=== PATIENT | male | born 1940 | race African-American/Black ===

== ENCOUNTER 2021-03-16 17:58 | Inpatient (IN) | payer OTHER ==
[2021-03-17 00:59] VITALS: BP 157/98
--- NOTE | 2021-03-17 01:20 | NUR ---
Sean was admitted to [facility] at 2215 via w/c from the ED after testing negative for COVID. He was alert and oriented to self only and his thought process was disorganized. He presented as calm, cooperative, appropriate, and pleasant throughout the admission process. He was provided a pt admission packet, a walker, and bedside commode as pt is a high fall risk. He has 9 deepak to the left side of his head that had a dry, clean dressing on it upon admission to the unit; he otherwise does not have any skin issues. His vitals upon admission were BP 157/98, HR 86, T 98.0, and R 18. He did not appear to be delusion or experiencing ZAVALA at this time. He denied SI/HI. He was provided a blair as an alternative call light and used appropriately to use the bathroom in the middle of the night; pt continent at this time and had a BM. 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 Consent received per pt's /DPOA, Yudy Brown, and some collateral information received but she voiced being tired, therefore conversation was not very long. She stated that she was not aware of a DM type 2 diagnosis but per [facility] hospital records pt has a DM2 dx and had humalog ordered BID with meals. This was communicated to FLORES Barton and orders to [facility] accuchecks and to monitor for 24 hours and re-evaluate. Pt's medication list from [facility] was 2 pages long and the only medication pt was D/C'd on was losartan potassium 25mg daily. This was confirmed with pt's and she stated "he was also taking a water pill, hydro something". This RN asked if it was hydrochlorathiazide and she stated "yes" but she was unsure of the dose, and there are no medications in the medication reconciliation [facility]. This was communicated to FLORES Hein who wished for this RN to call the hospitalist regarding this. FLORES Barton notified and she wished to have day team address this, therefore only protocol orders were placed. Per report from the ED pt ambulated using a walker, but pt's stated that pt was not ambulating with any assistance CLIENT RELATION SPECIALIST. Pt is being admitted due to an acute change in his cognition and bx after a fall where he hit his head end of January. Per records pt was seen for a syncope episode and sent home. Pt went to [facility] where he was noted to have a "very large subdermal hematoma" and underwent an emergent evacuation/craniostomy (per records) on 03/12/21. The records stated that they believed his bx's and confusion were r/t metabolic enchepalopathy due to the subdermal hematoma. Per pt's his change in bx occurred after the result of his fall and she does not wish for him to return home right away. She would like for him to go "to the place across the street from [place] so he's close to me". Pt is currently resting quietly in bed, will continue to monitor.
[2021-03-17 09:44] VITALS: BP 144/91
[2021-03-17 10:41] LABS: HEMATOCRIT 34.2 % (42.0-52.0); HEMOGLOBIN 11.4 gm/dL (14.0-18.0); MCH 28.3 pg (26.0-34.0); MCHC 33.2 g/dL (28.0-37.0); MCV 85.2 fL (80.0-100.0); RBC 4.01 mil/uL (4.50-6.00); RDW 14.1 % (10.5-14.5); WBC 4.9 thou/uL (4.0-11.0)
--- NOTE | 2021-03-17 10:55 | NUR ---
Alert and orientated to name only. Resistant to cares and exit seeking this AM. Contacted [employer] Angel Luis haldol given PO per order. Resistant to taking haldol but did comply after alot of encouragement and phone call from . Calmed down significantly and even was cooperative with blood draw. Denies SI/HI. Drsg per R scalp clean and dry. Ambulates with walker with regular, steady gait. Breath sounds clear. Reg HR auscultated. Color pink with brisk capillary refill and palpable peripheral pulses. No edema noted. Supervised toileting. Continent of yellow urine and formed brown stool per toilet. Active bowel sounds over soft, rounded abdomen. Participated in group. Currently resting in bed without s/o distress, bed alarm set.
[2021-03-17 10:59] LABS: CALCIUM 8.8 mg/dL (8.5-10.1); CREATININE 1.7 mg/dL (0.7-1.3); MAGNESIUM 1.8 mg/dL (1.8-2.4); POTASSIUM 3.9 mmol/L (3.5-5.1)
--- NOTE | 2021-03-17 12:09 | EKG ---
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: : 1940 Requested By: Fausto Hein Order Number: [id number] MD: Vitaliy Meng Measurements Intervals Sparkman Rate: 93 P: -20 RI: 151 QRS: -9 QRSD: 85 T: 18 QT: 347 QTc: 432 Interpretive Statements Sinus rhythm LVH with secondary repolarization abnormality No previous ECG available for comparison Electronically Signed On 03-17-2021 12:08:51 PERIANESTHESIA MANAGER by Vitaliy Meng [email or web address] <ELECTRONICALLY SIGNED> By: Vitaliy Meng MD, [facility] 03/17/21 1208 0829 0829 Vitaliy Meng MD, FAC /EPI
--- NOTE | 2021-03-17 14:05 | NUR ---
SW met with patient. Patient appeared to be doing well and was in a jovial mood. Patient reports to not being "one to complain" in reference to the lunch provided.
[2021-03-17 15:11] LABS: CHOLESTEROL 126 mg/dL (<200); HDL CHOLESTEROL 51 mg/dL (>40); LDL CHOLESTEROL 59 mg/dL (<100); TC:HDL 2.5 Ratio (Not establshd); TRIGLYCERIDE 82 mg/dL (<150); VLDL 16 mg/dL (<40)
[2021-03-17 15:16] LABS: SERUM ASSESSMENT Clear
[2021-03-17 16:00] VITALS: BP 128/53
[2021-03-17 19:15] VITALS: BP 139/58
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
[2021-03-18 05:25] LABS: HEMATOCRIT 29.9 % (42.0-52.0); MCH 28.8 pg (26.0-34.0); MCHC 33.5 g/dL (28.0-37.0); MCV 85.8 fL (80.0-100.0); RBC 3.48 mil/uL (4.50-6.00); RDW 14.4 % (10.5-14.5); WBC 3.8 thou/uL (4.0-11.0)
[2021-03-18 05:33] LABS: CALCIUM 8.4 mg/dL (8.5-10.1); CREATININE 1.4 mg/dL (0.7-1.3); MAGNESIUM 1.6 mg/dL (1.8-2.4); POTASSIUM 3.7 mmol/L (3.5-5.1)
[2021-03-18 05:36] LABS: GLYCOHEMOGLOBIN (HGB A1C) 5.6 % (4.8-5.6)
[2021-03-18 10:16] VITALS: BP 146/62
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
--- NOTE | 2021-03-18 12:16 | NUR ---
12:16PM - Phone call to patient's , Yudy Brown - Voice message.
[2021-03-18 15:55] VITALS: BP 146/62
[2021-03-18 19:30] VITALS: BP 132/49
[2021-03-18 20:01] VITALS: BP 132/49
--- NOTE | 2021-03-18 20:02 | NUR ---
Assumed pt care this morning from overnight shift. Pt was in activity area sitting and watching television. Pt presented pleasant but anxious during this time. Pt was oriented 3x, and showed improvement from yesterday's report orientation, telling staff his name, date of , the place he was at, and situation. Client did look to the board for the year, and stated that it was 2020 after initially stating that it was 2022. Client denied any auditory and visual hallucinations at this time. Client also denied any depression. Client denied any suicidal or homicidal intent as well. Pain was rated 0/10 at this time. Romel in forehead were intact and in place. Lung sounds were clear. Bowel sounds present with last BM being 03/18/21 per patient report. Pt given prn haldol for anxiety. Haldol given through po. No adverse effects noted. called for update on patient. informed of current status. voices wanting pt nearby at facility, but not wanting pt to return to home care at this point. Pt and spoke and had pleasant conversation per pt report. No further concerns at this time.
--- NOTE | 2021-03-18 21:40 | NUR ---
03/18/211899 Assumed care from day shift, in day room watching tv and socializing with peers. Oriented x3, unsure of the date. Rates general and heal pain 09/14, takes meds whole with thin water. Surgical incision on left scalp well aproximated with 9 deepak intact, no redness or swelling noted. Retired to bed @ HS, bed in low position, bed alarm set.
[2021-03-19 09:01] VITALS: BP 132/55
--- NOTE | 2021-03-19 10:20 | NUR ---
New admit to [facility] for alzheimers demential with behavorial disturbance. Hx subdural hematoma, DM, CKD. Visit this am, pt ambulating around dining room. Voiced good appetite and no wt loss. Intake records show 100% of past 3 meals. On vitamin D supplementation for deficiency, 20.2. Otherwise low nutrition risk
--- NOTE | 2021-03-19 13:01 | NUR ---
Patient care resummed, patient located in his room resting comfortably. Patient medication and meal compliant, Denies SI/HI/AVH, pain, depression and anxiety at this time. Patient is on alvarado fall precautions, patient was found in his room during hourly rounds half dressed with water all over room. Patient was assissted with completing the rest of his shower. A&O*2(Self,Time) Lung sounds clear bilaterally;nonlabored and on RM; VSS; Abdomen soft, nondistended with bowel sounds present*4; Pt. has Right side weakness, ambulates with a walker although unsteady at times; disorientation at times; Calm, cooperative and pleasent with staff. Wound to the Head on Left side; with 9 deepak; would D/C/I no dressing applied at this time. Will continue to monitior patient for safety, behaviors and infection.
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
[2021-03-19 20:00] VITALS: BP 151/56
[2021-03-19 20:09] VITALS: BP 151/56
--- NOTE | 2021-03-20 03:10 | NUR ---
PATIENT HAS BEEN IN HIS ROOM IN BED SINCE BEGINNING OF THE SHIFT. HE IS A/0X3. HE DENIES PAIN, SI/HI. NO HALLUCINATIONS OR DELUSIONS NOTED. PATIENT HAS BEEN PLEASANT AND COOPERATIVE. HE TOOK HIS HS MEDS WHOLE WITHOUT ISSUE. HE IS UP TO BATHROOM WITH WALKER AND ASSIST X 1 TO SUPERVISE. PATIENT IS A FALL RISK SO BED IS IN LOW POSITION AND BED ALARM IS ON. PATIENT HAS BEEN UP MULTIPLE TIMES THRU THE NIGHT TO URINATE. VSS. PATIENT LIGHTLY SLEEPING. HE IS WANTING TO GO HOME SOON. HE STATES HE FEELS SO MUCH BETTER AND READY TO LEAVE. TOYA IN LEFT FOREHEAD ARE IN PLACE AND NO SOI. ROUTINE ROUNDS TO ASSESS SAFETY AND STATUS OF PATIENT. CONTINUING TO MONITOR.
[2021-03-20 09:40] VITALS: BP 143/64
[2021-03-20 09:49] VITALS: BP 143/64
--- NOTE | 2021-03-20 10:56 | NUR ---
RESUMMED CARE FROM OVERNIGHT SHIFT THIS AM, PATIENT IN DAY ROOM QUIET. PATIENT ALERT ORIENTED TIMES 3 PATIENT DENIES SI/HI/AH/VH AT PRESENT. PATIENT ATE BREAKFAST TOOK MEDICATION WITHOUT INCIDENCE. PATIENTS ABDOMEN SOFT BOWEL SOUNDS PRESENT. PATIENTS LUNGS CLEAR PATIENT PARTICIPATES IN GROUP ASKS ABOUT THIS AM. DR VIDALES SPOKE WITH PATIENT THIS AM PATIENT HAS NOT DISPLAYED ANY BEHAVIORS. WILL CONTINUE TO MONITOR PATIENT FOR SAFETY AND BEHAVIORS.
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
[2021-03-20 20:00] VITALS: BP 150/73
[2021-03-20 20:02] VITALS: BP 150/73
--- NOTE | 2021-03-21 02:31 | NUR ---
PATIENT HAS BEEN IN ROOM TONIGHT IN BED. HE HAS BEEN CALM AND COOPERATIVE BUT CONFUSED AT TIMES. HE THINKS HE IS IN A HOTEL IN [place]. HE QUICKLY REMEMBERED HE WAS IN [facility] WHEN TOLD SO. HE TOOK HIS HS MEDS WHOLE WITH WATER. HE DENIES PAIN, SI/HI/AVH. HE IS UP WITH ASSIST WITH WALKER. PATIENT ASSISTED TO BATHROOM NEEDED THRU THE NIGHT. BED IN LOW POSITION AND BED ALARM IS ON. ROUTINE ROUNDS TO ASSESS SAFETY AND STATUS OF PATIENT.
[2021-03-21 12:05] VITALS: BP 121/56
[2021-03-21 13:32] VITALS: BP 121/56
--- NOTE | 2021-03-21 14:34 | NUR ---
RESUMMED CARE FROM OVERNIGHT SHIFT THIS AM, PATIENT ALERT ORIENTED TIMES 3-4. PATIENT DENIES SI/HI/AH/VH AT PRESENT; PATIENT ATE BREAKFAST TOOK MEDICATION WITHOUT INCIDENCE. PATIENTS ABDOMEN SOFT BOWEL SOUNDS PRESENT PATIENTS LUNGS CLEAR. PATIENT PARTICIPATES IN GROUPS PLEASANT CALM COOPERATIVE. WILL CONTINUE TO MONITOR PATIENT FOR SAFETY AND BEHAVIORS.
[2021-03-21 19:32] VITALS: BP 116/54
--- NOTE | 2021-03-22 02:31 | NUR ---
PATIENT CARE WAS RESUMED AT 1900. HE WAS SITTING IN THE DININIG AREA SOCIALIZING WITH OTHER PATIENTS.HE IS ALERT AND ORIENTED AND ABLE TO VERBALIZE HIS NEEDS. HE AMBULATES CONTINIET OF BOWEL AND BLADDER. YELLOW TOP AND SOCKS ARE ON. HE DENIES PAINS/AVH/SI/HI AT THIS TIME. TOOK HIS MEDS WHOLE AND NO CONCERN NOTED AT HIS TIME. BED IS LOW, LOCKED AND ALERMED. [id number] CHECKS ONGOING. CONTINUE CARE
[2021-03-22 07:08] VITALS: BP 139/67
[2021-03-22 09:44] VITALS: BP 139/67
[2021-03-22 15:43] VITALS: BP 139/67
--- NOTE | 2021-03-22 17:33 | NUR ---
MAITE was able to speak with the Pt's , Yudy, concerning discharge. Yudy was happy about the Pt returning home. Discharge was set for 03/23/2021 @ 1500. Pt will discharge with home health. Yudy stated she will be able to pick the Pt up.
--- NOTE | 2021-03-22 18:49 | NUR ---
Resummed pt care this morning from overnight shift. Client was in activity area and presented in calm and pleasant mood. Client was oriented 4x, and voiced no depression/anxiety at this time. Client also voiced no au/vi at this time. No homicidal or suicidal thoughts voiced. Client stated that goal was to discharge to new facility and call later tonight. Client took all medications well. Romel in head intact and dry upon observation. No current concerns.
[2021-03-22 19:00] VITALS: BP 144/63
[2021-03-22 20:00] VITALS: BP 144/63
--- NOTE | 2021-03-23 03:55 | NUR ---
PATIENT CARE WAS RESUMED AT 1900. HE WAS IN THE DININIG AREA, ALERT AND ORIENTED. ABLE TO VERBERLIZE CONCERNS. HE AMBULATES,AND TOOK HIS MEDS WHOLE. HE IS CONTINENT OF BOWEL AND BLADDER.HE DENIES ANY PAINS SI/AVH/HI. PATIENT IS CALM AND VERY COOPERATIVE TO CARE. LUNGS ARE CLEAR BS ACTIVE X4 QUADS. TOYA TO HIS HEAD ARE INTACT NO REDNESS, DRAIANGE OR SWOLLEN NOTED. INCISION LINE IS WELL APPROXIMATED. [id number] CHECKES ARE ONGOING. BED IS LOW AND LOCKED.
[2021-03-23] MEDS ORDERED: FLOMAX0.4 MG PO (11:40)
[2021-03-23] MEDS ORDERED: DEPAKOTE500 MG PO (11:41)
[2021-03-23] MEDS ORDERED: VITAMIN D325 MC2 PO (11:44)
[2021-03-23] MEDS ORDERED: MAGOX 400400 MG PO (11:44)
[2021-03-23 12:29] VITALS: BP 150/70
--- NOTE | 2021-03-23 12:52 | NUR ---
Patient care resummed; patient located up in the dayroom sitting comfortably in chair; Patient meal/medication compliant, calm, cooperative, and pleasent with staff. Patient denies SI/HI/AVH, Pain, Depression, and Anxiety at this time; A&O*2 (Self,Time); Lung sounds clear bilaterally,unlabored; Abdomen soft, nondistended with bowel sounds present*4; Skin is noted to be intack, although there are *9 Romel in the Left Anterior head; Romel are D/C/I, no dressing is applied at this time; Romel not ready to be removed per / and a follow up "Outpatient" appointment has been made. VSS;On room air; gait presents unsteady and slow with weakness; ambulates with a walker; right sided weakness noted during ambulation. Patient is being D/C today; to home with home health; transportation is set up to be the patients spouse; D/C to be around 1500. Fall precautions in place, Special precautions in place, Call blair within reach, will continue to monitior for safety and behaviors.
--- NOTE | 2021-03-23 16:01 | NUR ---
MAITE faxed home health referral to the following: [facility]
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
== END 2021-03-23 15:00 | disposition home health service (06) | DRG 56 ==
LOC: SBH → EROBS 22:55 → SBH 23:27
PROVIDERS: Internal Medicine; Nurse Practitioner Family; ADMIT Psychiatry & Neurology Psychiatry; ATTEND Psychiatry & Neurology Psychiatry
DX: G30.9 Alzheimer's disease, unspecified (principal); F01.51 Vascular dementia, unspecified severity, with behavioral disturbance; I62.00 Nontraumatic subdural hemorrhage, unspecified; N17.9 Acute kidney failure, unspecified; N18.9 Chronic kidney disease, unspecified; F02.81 Dementia in other diseases classified elsewhere, unspecified severity, with behavioral disturbance; D64.9 Anemia, unspecified; D69.6 Thrombocytopenia, unspecified; Z20.822 Contact with and (suspected) exposure to COVID-19; E78.5 Hyperlipidemia, unspecified; N40.0 Benign prostatic hyperplasia without lower urinary tract symptoms; E55.9 Vitamin D deficiency, unspecified; E11.22 Type 2 diabetes mellitus with diabetic chronic kidney disease; I12.9 Hypertensive chronic kidney disease with stage 1 through stage 4 chronic kidney disease, or unspecified chronic kidney disease
CPT/HCPCS: 10880

== ENCOUNTER 2021-03-16 19:41 | Emergency (ER) | payer OTHER ==
[2021-03-16 19:52] VITALS: BP 169/85
== END 2021-03-16 23:14 ==
LOC: ER 19:41
PROVIDERS: Emergency Medicine
DX: R41.0 Disorientation, unspecified (principal); Z20.822 Contact with and (suspected) exposure to COVID-19